=== PATIENT | male | born 1960 | race Caucasian/White ===

== ENCOUNTER 2017-05-26 12:40 | Emergency (ER) | payer BC ==
[~2017-05-26] VITALS: Ht 172.7 cm; Wt 64.7 kg
[2017-05-26] MEDS ORDERED: NORCO 5/3251 TABLET PO (15:38)
[2017-05-26] MEDS ORDERED: FLEXERIL10 MG PO (15:38)
[2017-05-26 15:57] VITALS: BP 127/96
== END 2017-05-26 15:58 | disposition home or self-care (01) ==
LOC: EME 12:40
DX: M54.12 Radiculopathy, cervical region (principal); H54.40 Blindness, one eye, unspecified eye; F17.200 Nicotine dependence, unspecified, uncomplicated; Z98.1 Arthrodesis status
CPT/HCPCS: 99281; 99284

== ENCOUNTER 2017-06-05 10:12 | Inpatient (IN) | payer BC ==
[~2017-06-05] VITALS: Ht 175.3 cm; Wt 64.4 kg
[~2017-06-05 10:12] MED LIST: FLEXERIL10 MG PO; NORCO 5/3251 TABLET PO
[2017-06-05 11:08] LABS: ALBUMIN 3.2 g/dL (3.2-4.8)
[2017-06-05 11:09] LABS: CHLORIDE 94 mEq/L (99-109); POTASSIUM 4.6 mEq/L (3.7-5.4); SODIUM 132 mEq/L (136-147)
[2017-06-05 11:11] LABS: GLUCOSE 96 mg/dL (70-99); TOTAL PROTEIN 6.6 g/dL (6.4-8.3)
[2017-06-05 11:13] LABS: TOTAL BILIRUBIN 0.4 mg/dL (0.0-1.0)
[2017-06-05 11:14] LABS: ALKALINE PHOSPHATASE 78 IU/L (3-129)
[2017-06-05 11:15] LABS: CREATININE 0.7 mg/dL (0.6-1.3); GFR ESTIMATE (CALCULATED) > 59 mL/min/ (58.99-99999)
[2017-06-05 11:16] LABS: AST (GOT) 12 IU/L (2-34); UREA NITROGEN (BUN) 13 mg/dL (9-23)
[2017-06-05 11:17] LABS: ALT (GPT) 9 IU/L (3-49)
[2017-06-05 11:22] LABS: TROP-I INTERPRETATION NEGATIVE; TROPONIN-I < 0.01 ng/mL (0.0-0.30)
[2017-06-05] MEDS ORDERED: TRAMADOL HCL50 MG PO (12:12)
[2017-06-05] MEDS ORDERED: VISINE DRY EYE15 ML BOTH EYES (12:13)
[2017-06-05] MEDS ORDERED: TYLENOL EXTRA500 MG PO (12:13)
[2017-06-05 12:49] LABS: HEMATOCRIT 39.7 % (38.0-50.0); HEMOGLOBIN 13.5 G/DL (12.5-16.6); MCH 31.3 PG (29.0-34.0); MCV 92.1 FL (86-99); PLATELET COUNT 595 K/uL (156-360); RBC DIS.WIDTH-CV 13.2 % (11.8-14.6); RBC DIS.WIDTH-SD 44.8 % (39-53); RED BLOOD COUNT 4.31 M/uL (4.00-5.50); WHITE BLOOD COUNT 21.8 K/uL (4.1-10.2)
[2017-06-05 13:39] LABS: ABS NEUTROPHIL COUNT 16.8; ATYPICAL LYMPHOCYTE 1.8 %; BAND NEUTROPHILS 6.2 % (0-8.0); EOSINOPHIL ABS CT 1.2; EOSINOPHILS 5.3 % (0-5.0); LYMPHOCYTES 5.3 % (15.0-45.0); MONOCYTES 10.6 % (0-9.0); SEG.NEUTROPHILS 70.8 % (46.0-76.0)
[2017-06-05 14:01] VITALS: BP 112/80
[2017-06-05 14:33] VITALS: BP 129/82
[2017-06-05 15:01] LABS: PTT 28.3 SEC (25-37)
[2017-06-05 23:00] VITALS: BP 115/72
[2017-06-06 06:19] LABS: HEMATOCRIT 39.2 % (38.0-50.0); HEMOGLOBIN 13.2 G/DL (12.5-16.6); MCH 31.3 PG (29.0-34.0); MCHC 33.7 G/DL (30.0-36.0); MCV 92.9 FL (86-99); PLATELET COUNT 591 K/uL (156-360); RBC DIS.WIDTH-CV 13.6 % (11.8-14.6); RBC DIS.WIDTH-SD 46.1 % (39-53); RED BLOOD COUNT 4.22 M/uL (4.00-5.50); WHITE BLOOD COUNT 20.5 K/uL (4.1-10.2)
[2017-06-06 06:53] LABS: CHLORIDE 100 MEQ/L (99-109); CREATININE 0.6 MG/DL (0.6-1.3); GFR ESTIMATE (CALCULATED) > 59 mL/min/ (58.99-99999); POTASSIUM 5.3 MEQ/L (3.7-5.4); SODIUM 138 MEQ/L (136-147); UREA NITROGEN (BUN) 9 mg/dL (9-23)
[2017-06-06 07:03] LABS: GLUCOSE 220 mg/dL (70-99)
[2017-06-06 07:05] VITALS: BP 136/77
[2017-06-06 14:56] VITALS: BP 135/80
[2017-06-06 23:24] VITALS: BP 137/89
[2017-06-07 06:06] LABS: HEMATOCRIT 39.5 % (38.0-50.0); HEMOGLOBIN 13.1 G/DL (12.5-16.6); MCHC 33.2 G/DL (30.0-36.0); MCV 93.6 FL (86-99); PLATELET COUNT 628 K/uL (156-360); RBC DIS.WIDTH-CV 13.9 % (11.8-14.6); RBC DIS.WIDTH-SD 47.8 % (39-53); RED BLOOD COUNT 4.22 M/uL (4.00-5.50); WHITE BLOOD COUNT 29.8 K/uL (4.1-10.2)
[2017-06-07 06:35] LABS: CHLORIDE 98 MEQ/L (99-109); CREATININE 0.5 MG/DL (0.6-1.3); GFR ESTIMATE (CALCULATED) > 59 mL/min/ (58.99-99999); GLUCOSE 133 mg/dL (70-99); POTASSIUM 4.6 MEQ/L (3.7-5.4); SODIUM 137 MEQ/L (136-147); UREA NITROGEN (BUN) 8 mg/dL (9-23)
[2017-06-07 07:28] VITALS: BP 142/88
[2017-06-07 11:22] VITALS: BP 118/82
[2017-06-07] MEDS ORDERED: DUONEB 2.5-0.5 M3 ML AEROSOL (14:22)
[2017-06-07] MEDS ORDERED: NICOTINE PATCH1 EAC2 TD (14:22)
[2017-06-07] MEDS ORDERED: TRAMADOL HCL50 MG OP IJ (14:27)
[2017-06-07] MEDS ORDERED: PERCOCET 10/1 TABLET PO (14:27)
[2017-06-07 19:19] VITALS: BP 143/79
[2017-06-07 23:31] VITALS: BP 139/79
[2017-06-08 07:15] VITALS: BP 137/87
[2017-06-08 11:08] VITALS: BP 148/89
[2017-06-08 12:27] VITALS: BP 148/89
[2017-06-08] MEDS ORDERED: PREDNISONE20 MG PO (14:25)
[2017-06-08] MEDS ORDERED: SPIRIVA RESPIMAT4 GM IH (14:25)
[2017-06-08] MEDS ORDERED: ADVAIR HFA120 INHALA IH (14:25)
[2017-06-08] MEDS ORDERED: VISINE DRY EYE15 ML BOTH EYES (14:25)
[2017-06-08] MEDS ORDERED: OXAYDO5 MG PO (14:25)
[2017-06-08] MEDS ORDERED: MORPHABOND ER15 MG PO (14:25)
== END 2017-06-08 15:58 | disposition home or self-care (01) | DRG 194 ==
LOC: EME 10:12 → EDOF 10:53 → 5EAST 10:53 → ENRESERV 11:01 → 5EAST 13:53
PROVIDERS: Emergency Medicine; Family Medicine; Internal Medicine; Radiology Diagnostic Radiology
PROC: 0BBF3ZX Excision of Right Lower Lung Lobe, Percutaneous Approach, Diagnostic (ICD-10-PCS; principal; 2017-06-05)
DX: J18.9 Pneumonia, unspecified organism (principal); C34.31 Malignant neoplasm of lower lobe, right bronchus or lung; J44.0 Chronic obstructive pulmonary disease with (acute) lower respiratory infection; N28.89 Other specified disorders of kidney and ureter; F17.210 Nicotine dependence, cigarettes, uncomplicated; H54.62 Unqualified visual loss, left eye, normal vision right eye
CPT/HCPCS: 71045; 71046; 77012; 80048; 80053; 83605; 84484; 85025; 85027; 85610; 85730; 87070; 87075; 87116; 87205; 87206; 88305; 88341 TC; 88342 TC; 94640; 94640 76; 99202; 99281; 99285; J0456; J0692; J2270; J2930; J3010; J7042; J7512

== ENCOUNTER 2017-07-09 10:54 | Inpatient (IN) | payer BC ==
[~2017-07-09] VITALS: Ht 177.8 cm; Wt 72.3 kg
[~2017-07-09 10:54] MED LIST changes: +ADVAIR HFA120 INHALA IH; +DUONEB 2.5-0.5 M3 ML AEROSOL; +MORPHABOND ER15 MG PO; +NICOTINE PATCH1 EAC2 TD; +OXAYDO5 MG PO; +PERCOCET 10/1 TABLET PO; +PREDNISONE20 MG PO; +SPIRIVA RESPIMAT4 GM IH; +TRAMADOL HCL50 MG OP IJ; +TRAMADOL HCL50 MG PO; +TYLENOL EXTRA500 MG PO; +VISINE DRY EYE15 ML BOTH EYES
[2017-07-09 11:51] LABS: BASOPHIL (%) 0.4 % (0-1); BASOPHIL COUNT 0.1 K/uL (0-0.1); EOSINOPHIL (%) 1.6 % (0-5); EOSINOPHIL COUNT 0.5 K/uL (0-0.3); IMMATURE GRANULOCYTE (%) 3.8 % (0.0-0.7); LYMPHOCYTE (%) 4.3 % (15-42); LYMPHOCYTE COUNT 1.3 K/uL (1.0-2.8); MONOCYTE COUNT 1.9 K/uL (0-0.8); NEUTROPHIL (%) 83.9 % (45-76); NEUTROPHIL COUNT 25.9 K/uL (1.8-6.4); PLATELET COUNT 508 K/uL (156-360)
[2017-07-09 11:57] LABS: INTER. NORMALIZED RATIO 1.2
[2017-07-09 11:59] LABS: PTT 26.7 SEC (25-37)
[2017-07-09 12:00] LABS: CHLORIDE 76 mEq/L (99-109); POTASSIUM 4.4 mEq/L (3.7-5.4)
[2017-07-09 12:01] LABS: GLUCOSE 112 mg/dL (70-99); HEMATOCRIT 30.7 % (38.0-50.0); HEMOGLOBIN 11.1 G/DL (12.5-16.6); MCH 30.5 PG (29.0-34.0); MCHC 36.2 G/DL (30.0-36.0); RBC DIS.WIDTH-CV 12.5 % (11.8-14.6); RBC DIS.WIDTH-SD 38.1 % (39-53); RED BLOOD COUNT 3.64 M/uL (4.00-5.50)
[2017-07-09 12:03] LABS: MCV 84.3 FL (86-99); WHITE BLOOD COUNT 31.7 K/uL (4.1-10.2)
[2017-07-09 12:05] LABS: CREATININE 0.6 mg/dL (0.6-1.3); GFR ESTIMATE (CALCULATED) > 59 mL/min/ (58.99-99999)
[2017-07-09 12:06] LABS: UREA NITROGEN (BUN) 10 mg/dL (9-23)
[2017-07-09 12:07] LABS: SODIUM 112 mEq/L (136-147)
[2017-07-09 12:11] LABS: TROP-I INTERPRETATION NEGATIVE
[2017-07-09] MEDS ORDERED: MS CONTIN,ORAMO60 MG PO (13:17)
[2017-07-09] MEDS ORDERED: FLEXERIL5 MG PO (13:18)
[2017-07-09] MEDS ORDERED: OXYCODONE HCL10 MG PO (13:18)
[2017-07-09 19:40] VITALS: BP 94/74
[2017-07-09 23:30] VITALS: BP 111/72
[2017-07-10 03:28] VITALS: BP 121/74
[2017-07-10 06:13] LABS: HEMATOCRIT 30.9 % (38.0-50.0); HEMOGLOBIN 10.1 G/DL (12.5-16.6); MCH 29.3 PG (29.0-34.0); MCHC 32.7 G/DL (30.0-36.0); PLATELET COUNT 522 K/uL (156-360); RBC DIS.WIDTH-CV 13.2 % (11.8-14.6); RBC DIS.WIDTH-SD 43.3 % (39-53); RED BLOOD COUNT 3.45 M/uL (4.00-5.50)
[2017-07-10 06:19] LABS: MCV 89.6 FL (86-99)
[2017-07-10 06:43] LABS: ALBUMIN 2.4 G/DL (3.2-4.8); ALKALINE PHOSPHATASE 61 IU/L (3-129); ALT (GPT) 11 IU/L (3-49); AST (GOT) 13 IU/L (2-34); CHLORIDE 91 MEQ/L (99-109); CREATININE 0.4 MG/DL (0.6-1.3); GFR ESTIMATE (CALCULATED) > 59 mL/min/ (58.99-99999); GLUCOSE 84 mg/dL (70-99); TOTAL PROTEIN 4.8 G/DL (6.4-8.3); UREA NITROGEN (BUN) 6 mg/dL (9-23)
[2017-07-10 06:48] LABS: SODIUM 129 MEQ/L (136-147); TOTAL BILIRUBIN 0.3 MG/DL (0.0-1.0)
[2017-07-10 07:52] VITALS: BP 136/70
[2017-07-10 10:36] VITALS: BP 98/60
[2017-07-10 13:41] VITALS: BP 102/57
[2017-07-10 16:34] VITALS: BP 112/80
[2017-07-10 16:45] LABS: CHLORIDE 89 MEQ/L (99-109); CREATININE 0.5 MG/DL (0.6-1.3); GFR ESTIMATE (CALCULATED) > 59 mL/min/ (58.99-99999); POTASSIUM 3.5 MEQ/L (3.7-5.4); UREA NITROGEN (BUN) 6 mg/dL (9-23)
[2017-07-10 16:58] LABS: GLUCOSE 244 mg/dL (70-99); SODIUM 121 MEQ/L (136-147)
[2017-07-10 18:24] LABS: CHLORIDE 90 MEQ/L (99-109); CREATININE 0.5 MG/DL (0.6-1.3); GFR ESTIMATE (CALCULATED) > 59 mL/min/ (58.99-99999); GLUCOSE 138 mg/dL (70-99); SODIUM 123 MEQ/L (136-147); UREA NITROGEN (BUN) 6 mg/dL (9-23)
[2017-07-10 19:55] VITALS: BP 120/69
[2017-07-10 22:05] LABS: CHLORIDE 91 MEQ/L (99-109); CREATININE 0.5 MG/DL (0.6-1.3); GFR ESTIMATE (CALCULATED) > 59 mL/min/ (58.99-99999); GLUCOSE 207 mg/dL (70-99); POTASSIUM 4.4 MEQ/L (3.7-5.4); SODIUM 122 MEQ/L (136-147); UREA NITROGEN (BUN) 6 mg/dL (9-23)
[2017-07-11] VITALS (7 sets, daily range): BP systolic 102–118; BP diastolic 58–76
[2017-07-11 02:20] LABS: CHLORIDE 93 mEq/L (99-109); POTASSIUM 4.7 mEq/L (3.7-5.4); SODIUM 127 mEq/L (136-147)
[2017-07-11 02:22] LABS: GLUCOSE 154 mg/dL (70-99)
[2017-07-11 02:26] LABS: CREATININE 0.5 mg/dL (0.6-1.3); GFR ESTIMATE (CALCULATED) > 59 mL/min/ (58.99-99999)
[2017-07-11 02:27] LABS: UREA NITROGEN (BUN) 4 mg/dL (9-23)
[2017-07-11 06:57] LABS: CHLORIDE 93 MEQ/L (99-109); POTASSIUM 4.7 MEQ/L (3.7-5.4); SODIUM 129 MEQ/L (136-147)
[2017-07-11 07:03] LABS: CREATININE 0.4 MG/DL (0.6-1.3); GFR ESTIMATE (CALCULATED) > 59 mL/min/ (58.99-99999); GLUCOSE 150 mg/dL (70-99); UREA NITROGEN (BUN) 4 mg/dL (9-23)
[2017-07-11 08:15] LABS: THYROTROPIN (TSH) 0.95 MIU/L (0.4-5.5)
[2017-07-11 10:28] LABS: CHLORIDE 91 MEQ/L (99-109); CREATININE 0.4 MG/DL (0.6-1.3); GFR ESTIMATE (CALCULATED) > 59 mL/min/ (58.99-99999); GLUCOSE 153 mg/dL (70-99); POTASSIUM 4.7 MEQ/L (3.7-5.4); SODIUM 127 MEQ/L (136-147); UREA NITROGEN (BUN) 4 mg/dL (9-23)
[2017-07-11 14:42] LABS: CHLORIDE 89 MEQ/L (99-109); CREATININE 0.4 MG/DL (0.6-1.3); GFR ESTIMATE (CALCULATED) > 59 mL/min/ (58.99-99999); GLUCOSE 175 mg/dL (70-99); POTASSIUM 4.6 MEQ/L (3.7-5.4); SODIUM 126 MEQ/L (136-147); UREA NITROGEN (BUN) 5 mg/dL (9-23)
[2017-07-11 19:47] LABS: CHLORIDE 91 MEQ/L (99-109); CREATININE 0.4 MG/DL (0.6-1.3); GFR ESTIMATE (CALCULATED) > 59 mL/min/ (58.99-99999); GLUCOSE 151 mg/dL (70-99); POTASSIUM 4.3 MEQ/L (3.7-5.4); SODIUM 127 MEQ/L (136-147); UREA NITROGEN (BUN) 5 mg/dL (9-23)
[2017-07-11 22:08] LABS: CHLORIDE 91 mEq/L (99-109); POTASSIUM 4.5 mEq/L (3.7-5.4); SODIUM 128 mEq/L (136-147)
[2017-07-11 22:10] LABS: GLUCOSE 152 mg/dL (70-99)
[2017-07-11 22:14] LABS: CREATININE 0.6 mg/dL (0.6-1.3); GFR ESTIMATE (CALCULATED) > 59 mL/min/ (58.99-99999)
[2017-07-11 22:15] LABS: UREA NITROGEN (BUN) 6 mg/dL (9-23)
[2017-07-12 01:28] LABS: CHLORIDE 92 mEq/L (99-109); POTASSIUM 4.4 mEq/L (3.7-5.4); SODIUM 130 mEq/L (136-147)
[2017-07-12 01:30] LABS: GLUCOSE 208 mg/dL (70-99)
[2017-07-12 01:34] LABS: CREATININE 0.5 mg/dL (0.6-1.3); GFR ESTIMATE (CALCULATED) > 59 mL/min/ (58.99-99999)
[2017-07-12 01:35] LABS: UREA NITROGEN (BUN) 6 mg/dL (9-23)
[2017-07-12 04:49] VITALS: BP 130/74
[2017-07-12 06:03] LABS: CHLORIDE 92 MEQ/L (99-109); CREATININE 0.4 MG/DL (0.6-1.3); GFR ESTIMATE (CALCULATED) > 59 mL/min/ (58.99-99999); GLUCOSE 129 mg/dL (70-99); SODIUM 130 MEQ/L (136-147); UREA NITROGEN (BUN) 5 mg/dL (9-23)
[2017-07-12 21:00] VITALS: BP 129/73
[2017-07-13 00:58] VITALS: BP 131/77
[2017-07-13 05:46] VITALS: BP 140/79
[2017-07-13 06:10] LABS: BASOPHIL (%) 0.3 % (0-1); BASOPHIL COUNT 0.1 K/uL (0-0.1); EOSINOPHIL (%) 1.8 % (0-5); EOSINOPHIL COUNT 0.5 K/uL (0-0.3); HEMATOCRIT 30.8 % (38.0-50.0); IMMATURE GRANULOCYTE (%) 4.3 % (0.0-0.7); LYMPHOCYTE (%) 2.8 % (15-42); LYMPHOCYTE COUNT 0.7 K/uL (1.0-2.8); MCH 29.4 PG (29.0-34.0); MCHC 32.5 G/DL (30.0-36.0); MCV 90.6 FL (86-99); MONOCYTE (%) 8.2 % (3-12); MONOCYTE COUNT 2.2 K/uL (0-0.8); NEUTROPHIL (%) 82.6 % (45-76); NEUTROPHIL COUNT 21.6 K/uL (1.8-6.4); PLATELET COUNT 598 K/uL (156-360); RBC DIS.WIDTH-CV 13.6 % (11.8-14.6); RBC DIS.WIDTH-SD 45.1 % (39-53); WHITE BLOOD COUNT 26.1 K/uL (4.1-10.2)
[2017-07-13 06:44] LABS: CHLORIDE 93 MEQ/L (99-109); CREATININE 0.4 MG/DL (0.6-1.3); GFR ESTIMATE (CALCULATED) > 59 mL/min/ (58.99-99999); GLUCOSE 103 mg/dL (70-99); MAGNESIUM 1.8 mg/dl (1.3-2.7); POTASSIUM 4.7 MEQ/L (3.7-5.4); SODIUM 130 MEQ/L (136-147); UREA NITROGEN (BUN) 7 mg/dL (9-23)
[2017-07-13 07:40] VITALS: BP 120/70
[2017-07-13 12:16] VITALS: BP 143/89
[2017-07-13 13:25] LABS: TYPE OF FLUID PLEURAL
[2017-07-13 14:47] LABS: APPEARANCE HAZY-YELLOW; BODY FLUID EOSINOPHILS 62 % (0-25); BODY FLUID RBC'S < 1000 /MM^3 (0-100); BODY FLUID WBC'S 832 /MM^3 (0-500); MONONUCLEAR WBC'S 29 %; POLYNUCLEAR WBC'S 9 % (0-25)
[2017-07-13 14:55] LABS: BODY FLUID GLUCOSE 119 MG/DL; BODY FLUID LDH 71 IU/L; BODY FLUID PROTEIN < 3.0 G/DL
[2017-07-13 15:13] VITALS: BP 125/82
[2017-07-13 19:30] VITALS: BP 115/78
[2017-07-14] VITALS (7 sets, daily range): BP systolic 120–140; BP diastolic 78–89
[2017-07-14 06:23] LABS: BASOPHIL (%) 0.4 % (0-1); BASOPHIL COUNT 0.1 K/uL (0-0.1); EOSINOPHIL COUNT 0.3 K/uL (0-0.3); HEMATOCRIT 34.8 % (38.0-50.0); HEMOGLOBIN 11.4 G/DL (12.5-16.6); LYMPHOCYTE (%) 2.3 % (15-42); LYMPHOCYTE COUNT 0.7 K/uL (1.0-2.8); MCH 29.9 PG (29.0-34.0); MCHC 32.8 G/DL (30.0-36.0); MCV 91.3 FL (86-99); MONOCYTE (%) 7.1 % (3-12); MONOCYTE COUNT 2.1 K/uL (0-0.8); NEUTROPHIL (%) 84.2 % (45-76); NEUTROPHIL COUNT 24.8 K/uL (1.8-6.4); PLATELET COUNT 575 K/uL (156-360); RBC DIS.WIDTH-CV 13.7 % (11.8-14.6); RBC DIS.WIDTH-SD 46.2 % (39-53); RED BLOOD COUNT 3.81 M/uL (4.00-5.50); WHITE BLOOD COUNT 29.5 K/uL (4.1-10.2)
[2017-07-14 06:31] LABS: CHLORIDE 91 MEQ/L (99-109); CREATININE 0.5 MG/DL (0.6-1.3); GFR ESTIMATE (CALCULATED) > 59 mL/min/ (58.99-99999); GLUCOSE 98 mg/dL (70-99); POTASSIUM 4.9 MEQ/L (3.7-5.4); SODIUM 132 MEQ/L (136-147); UREA NITROGEN (BUN) 10 mg/dL (9-23)
[2017-07-14 08:55] LABS: CHLORIDE 89 MEQ/L (99-109); CREATININE 0.4 MG/DL (0.6-1.3); GFR ESTIMATE (CALCULATED) > 59 mL/min/ (58.99-99999); GLUCOSE 112 mg/dL (70-99); POTASSIUM 4.5 MEQ/L (3.7-5.4); SODIUM 129 MEQ/L (136-147); UREA NITROGEN (BUN) 10 mg/dL (9-23)
[2017-07-15 07:41] VITALS: BP 124/70
[2017-07-15 11:25] VITALS: BP 111/73
[2017-07-15 15:45] VITALS: BP 132/77
[2017-07-15 16:30] VITALS: BP 123/77
[2017-07-15 20:00] VITALS: BP 137/76
[2017-07-16] VITALS (7 sets, daily range): BP systolic 107–163; BP diastolic 64–91
[2017-07-16 09:35] LABS: CHLORIDE 92 MEQ/L (99-109); CREATININE 0.4 MG/DL (0.6-1.3); GFR ESTIMATE (CALCULATED) > 59 mL/min/ (58.99-99999); GLUCOSE 110 mg/dL (70-99); POTASSIUM 4.8 MEQ/L (3.7-5.4); SODIUM 132 MEQ/L (136-147); UREA NITROGEN (BUN) 16 mg/dL (9-23)
[2017-07-17 03:44] VITALS: BP 112/65
[2017-07-17 08:09] VITALS: BP 105/72
[2017-07-17 12:14] VITALS: BP 111/68
[2017-07-17 15:42] VITALS: BP 122/74
[2017-07-17 19:38] VITALS: BP 125/75
[2017-07-17 23:56] VITALS: BP 142/84
[2017-07-18 04:05] VITALS: BP 130/82
[2017-07-18 07:12] LABS: CHLORIDE 93 MEQ/L (99-109); CREATININE 0.3 MG/DL (0.6-1.3); GFR ESTIMATE (CALCULATED) > 59 mL/min/ (58.99-99999); GLUCOSE 112 mg/dL (70-99); POTASSIUM 4.9 MEQ/L (3.7-5.4); SODIUM 133 MEQ/L (136-147); UREA NITROGEN (BUN) 20 mg/dL (9-23)
[2017-07-18 07:42] VITALS: BP 127/83
[2017-07-18 19:07] LABS: PLATELET COUNT 584 K/uL (156-360)
[2017-07-18 19:15] VITALS: BP 139/83
[2017-07-18 19:18] LABS: HEMATOCRIT 35.5 % (38.0-50.0); HEMOGLOBIN 11.8 G/DL (12.5-16.6); MCH 29.9 PG (29.0-34.0); MCHC 33.2 G/DL (30.0-36.0); MCV 90.1 FL (86-99); RBC DIS.WIDTH-CV 13.4 % (11.8-14.6); RBC DIS.WIDTH-SD 44.3 % (39-53); RED BLOOD COUNT 3.94 M/uL (4.00-5.50)
[2017-07-18 19:21] LABS: WHITE BLOOD COUNT 46.4 K/uL (4.1-10.2)
[2017-07-18 19:27] LABS: ALKALINE PHOSPHATASE 90 IU/L (3-129); ALT (GPT) 69 IU/L (3-49); AST (GOT) 26 IU/L (2-34); CHLORIDE 93 MEQ/L (99-109); CREATININE 0.4 MG/DL (0.6-1.3); GFR ESTIMATE (CALCULATED) > 59 mL/min/ (58.99-99999); GLUCOSE 128 mg/dL (70-99); POTASSIUM 4.4 MEQ/L (3.7-5.4); SODIUM 130 MEQ/L (136-147); TOTAL BILIRUBIN 0.3 MG/DL (0.0-1.0); TOTAL PROTEIN 6.4 G/DL (6.4-8.3); UREA NITROGEN (BUN) 22 mg/dL (9-23)
[2017-07-18 23:08] VITALS: BP 145/84
[2017-07-19 03:06] VITALS: BP 120/69
[2017-07-19 07:00] VITALS: BP 124/74
[2017-07-19 11:42] VITALS: BP 125/84
[2017-07-19 15:08] VITALS: BP 138/80
[2017-07-19 15:15] LABS: PLATELET COUNT 561 K/uL (156-360)
[2017-07-19 15:21] LABS: HEMATOCRIT 36.5 % (38.0-50.0); HEMOGLOBIN 12.2 G/DL (12.5-16.6); MCH 30.2 PG (29.0-34.0); MCHC 33.4 G/DL (30.0-36.0); MCV 90.3 FL (86-99); RBC DIS.WIDTH-CV 13.7 % (11.8-14.6); RBC DIS.WIDTH-SD 45.3 % (39-53); RED BLOOD COUNT 4.04 M/uL (4.00-5.50)
[2017-07-19 15:22] LABS: WHITE BLOOD COUNT 50.2 K/uL (4.1-10.2)
[2017-07-19 15:27] LABS: CHLORIDE 91 MEQ/L (99-109); POTASSIUM 4.5 MEQ/L (3.7-5.4); SODIUM 131 MEQ/L (136-147)
[2017-07-19 15:33] LABS: CREATININE 0.4 MG/DL (0.6-1.3); GFR ESTIMATE (CALCULATED) > 59 mL/min/ (58.99-99999); GLUCOSE 140 mg/dL (70-99); UREA NITROGEN (BUN) 24 mg/dL (9-23)
[2017-07-19 20:00] VITALS: BP 129/80
[2017-07-20] VITALS (7 sets, daily range): BP systolic 121–132; BP diastolic 78–95
[2017-07-21 03:20] VITALS: BP 135/85
[2017-07-21 06:21] LABS: HEMOGLOBIN 11.9 G/DL (12.5-16.6); MCHC 32.2 G/DL (30.0-36.0); PLATELET COUNT 536 K/uL (156-360); RBC DIS.WIDTH-CV 13.4 % (11.8-14.6); RBC DIS.WIDTH-SD 44.5 % (39-53); RED BLOOD COUNT 4.11 M/uL (4.00-5.50)
[2017-07-21 06:22] LABS: WHITE BLOOD COUNT 48.4 K/uL (4.1-10.2)
[2017-07-21 06:40] LABS: ALBUMIN 2.9 G/DL (3.2-4.8); ALKALINE PHOSPHATASE 84 IU/L (3-129); ALT (GPT) 55 IU/L (3-49); CHLORIDE 90 MEQ/L (99-109); CREATININE 0.3 MG/DL (0.6-1.3); GFR ESTIMATE (CALCULATED) > 59 mL/min/ (58.99-99999); POTASSIUM 4.8 MEQ/L (3.7-5.4); SODIUM 132 MEQ/L (136-147); UREA NITROGEN (BUN) 22 mg/dL (9-23)
[2017-07-21 06:44] LABS: AST (GOT) 13 IU/L (2-34); GLUCOSE 104 mg/dL (70-99); TOTAL BILIRUBIN 0.4 MG/DL (0.0-1.0)
[2017-07-21 06:52] LABS: ABS NEUTROPHIL COUNT 44.4; ATYPICAL LYMPHOCYTE 0.9 %; BAND NEUTROPHILS 6.2 % (0-8.0); EOSINOPHIL ABS CT 0; LYMPHOCYTES 1.3 % (15.0-45.0); METAMYELOCYTES 0.4 %; MONOCYTES 5.3 % (0-9.0); MYELOCYTES 0.4 %; NUCLEATED RBC'S 0.9; PLAT.SUFFICIENCY INCREASED; POLYCHROMASIA 1+; SEG.NEUTROPHILS 85.5 % (46.0-76.0); SPHEROCYTES 1+
[2017-07-21 07:41] VITALS: BP 113/76
[2017-07-21 11:51] VITALS: BP 127/68
[2017-07-21 15:11] VITALS: BP 117/75
[2017-07-21 19:55] VITALS: BP 131/80
[2017-07-22 00:35] VITALS: BP 128/76
[2017-07-22 05:14] VITALS: BP 127/76
[2017-07-22 08:00] VITALS: BP 141/83
[2017-07-22 12:00] VITALS: BP 116/76
[2017-07-22 18:17] VITALS: BP 138/84
[2017-07-22 20:20] VITALS: BP 143/78
[2017-07-23 00:05] VITALS: BP 122/85
[2017-07-23 08:13] VITALS: BP 123/77
[2017-07-23 11:30] VITALS: BP 141/87
[2017-07-23 15:48] VITALS: BP 114/84
[2017-07-24 00:42] VITALS: BP 152/76
[2017-07-24 07:00] VITALS: BP 124/84
[2017-07-24 07:16] LABS: PLATELET COUNT 480 K/uL (156-360)
[2017-07-24 07:19] LABS: HEMATOCRIT 38.3 % (38.0-50.0); HEMOGLOBIN 12.4 G/DL (12.5-16.6); MCH 29.2 PG (29.0-34.0); MCHC 32.4 G/DL (30.0-36.0); MCV 90.3 FL (86-99); RBC DIS.WIDTH-CV 13.8 % (11.8-14.6); RBC DIS.WIDTH-SD 45.7 % (39-53); RED BLOOD COUNT 4.24 M/uL (4.00-5.50)
[2017-07-24 07:29] LABS: WHITE BLOOD COUNT 41.7 K/uL (4.1-10.2)
[2017-07-24 07:43] LABS: ALBUMIN 3.1 G/DL (3.2-4.8); ALKALINE PHOSPHATASE 81 IU/L (3-129); ALT (GPT) 54 IU/L (3-49); AST (GOT) 12 IU/L (2-34); CHLORIDE 89 MEQ/L (99-109); CREATININE 0.3 MG/DL (0.6-1.3); GFR ESTIMATE (CALCULATED) > 59 mL/min/ (58.99-99999); GLUCOSE 112 mg/dL (70-99); POTASSIUM 4.8 MEQ/L (3.7-5.4); SODIUM 131 MEQ/L (136-147); TOTAL PROTEIN 6.2 G/DL (6.4-8.3); UREA NITROGEN (BUN) 20 mg/dL (9-23)
[2017-07-24 07:44] LABS: TOTAL BILIRUBIN 0.5 MG/DL (0.0-1.0)
[2017-07-24 16:58] VITALS: BP 124/81
[2017-07-25 00:23] VITALS: BP 121/79
[2017-07-25 06:15] VITALS: BP 131/84
[2017-07-25] MEDS ORDERED: CYCLOBENZAPRINE5 MG PO (11:19)
[2017-07-25] MEDS ORDERED: FLUCONAZOLE100 MG PO (11:19)
[2017-07-25] MEDS ORDERED: MYCOSTATIN 100,60 ML PO (11:19)
[2017-07-25] MEDS ORDERED: CALCIUM CARB1 TABLET PO (11:20)
[2017-07-25] MEDS ORDERED: SODIUM CHLORIDE1 G1 PO (11:20)
[2017-07-25] MEDS ORDERED: TYLENOL REGULA325 MG PO (11:20)
[2017-07-25] MEDS ORDERED: FUROSEMIDE20 MG PO (11:21)
[2017-07-25] MEDS ORDERED: DULERA 100 MCG/13 GM IH (11:21)
[2017-07-25] MEDS ORDERED: SSD25GM TP (11:22)
[2017-07-25] MEDS ORDERED: DOCUSATE SODIU100 MG PO (11:22)
[2017-07-25] MEDS ORDERED: PANTOPRAZOLE SO40 MG PO (11:22)
[2017-07-25] MEDS ORDERED: DECADRON4 M1 PO (11:23)
[2017-07-25] MEDS ORDERED: Robitussin DM PO (11:24)
[2017-07-25] MEDS ORDERED: Chronulac,Cephulac,E PO (11:24)
[2017-07-25] MEDS ORDERED: Milk Of Magnesia,MOM PO (11:24)
== END 2017-07-25 13:00 | disposition home health service (06) | DRG 871 ==
LOC: EME 10:54 → 4EAST 13:27 → EDOF 13:27 → ENRESERV 13:28 → 4EAST 19:40 → ENRESERV 07-14 13:29 → 5EAST 07-15 16:49 → ENPENDDIS 07-25 → 5EAST 07-25 13:00
PROVIDERS: Emergency Medicine; Internal Medicine; Internal Medicine Nephrology; Internal Medicine Pulmonary Disease
PROC: 0T9B70Z Drainage of Bladder with Drainage Device, Via Natural or Artificial Opening (ICD-10-PCS; principal; 2017-07-10)
PROC: 0W993ZX Drainage of Right Pleural Cavity, Percutaneous Approach, Diagnostic (ICD-10-PCS; 2017-07-13)
PROC: DP0C1ZZ Beam Radiation of Other Bone using Photons 1 - 10 MeV (ICD-10-PCS; 2017-07-16)
DX: A41.9 Sepsis, unspecified organism (principal); J18.9 Pneumonia, unspecified organism; C34.31 Malignant neoplasm of lower lobe, right bronchus or lung; E22.2 Syndrome of inappropriate secretion of antidiuretic hormone; C78.7 Secondary malignant neoplasm of liver and intrahepatic bile duct; C79.72 Secondary malignant neoplasm of left adrenal gland; C79.51 Secondary malignant neoplasm of bone; C77.0 Secondary and unspecified malignant neoplasm of lymph nodes of head, face and neck; C77.1 Secondary and unspecified malignant neoplasm of intrathoracic lymph nodes; J90 Pleural effusion, not elsewhere classified; L89.151 Pressure ulcer of sacral region, stage 1; B37.0 Candidal stomatitis; M54.12 Radiculopathy, cervical region; I95.9 Hypotension, unspecified; E86.1 Hypovolemia; E86.0 Dehydration; J44.0 Chronic obstructive pulmonary disease with (acute) lower respiratory infection; H54.62 Unqualified visual loss, left eye, normal vision right eye; K21.9 Gastro-esophageal reflux disease without esophagitis; D72.829 Elevated white blood cell count, unspecified; T38.0X5A Adverse effect of glucocorticoids and synthetic analogues, initial encounter; Z66 Do not resuscitate; K59.00 Constipation, unspecified; M25.519 Pain in unspecified shoulder; M54.6 Pain in thoracic spine; M79.89 Other specified soft tissue disorders; R00.0 Tachycardia, unspecified; R07.89 Other chest pain; R44.3 Hallucinations, unspecified; R94.31 Abnormal electrocardiogram [ECG] [EKG]; F41.9 Anxiety disorder, unspecified; F17.210 Nicotine dependence, cigarettes, uncomplicated; Z87.01 Personal history of pneumonia (recurrent)
CPT/HCPCS: 70450; 71045; 72156; 72157; 76942; 77331; 77336; 77412; 77417; 80048; 80048 91; 80053; 82533 91; 82945; 83605; 83615 91; 83735; 83935; 84100; 84157; 84295; 84300; 84443; 84484; 85025; 85027; 85610; 85730; 87040; 87070; 87075; 87116; 87205; 87206; 88108; 88305; 89051; 93005; 93925; 93970; 94010; 94640; 94640 76; 94760; 94799; 97530 GO; 97530 GP; 99202; 99281; 99285; A6214; J0456; J0692; J1100; J1650; J1885; J2543; J3370; J7030; J7050; J7070; J8540